=== PATIENT | male | born 1990 | race African-American/Black ===

== ENCOUNTER 2018-08-15 21:28 | Emergency (ER) | payer OTHER ==
[2018-08-15 21:43] VITALS: BP 132/74
--- NOTE | 2018-08-16 00:48 | ER Document Report ---
HPI - HPI Patient complains to provider of: cough Time Seen by Provider: 08/15/18 23:47 Pain Level: 1 Context: Well-appearing 29-year-old male who presents to the emergency department for persistent cough times 1 month. He has taken DayQuil and NyQuil and Mucinex with no resolution. He states he has been drinking about a gallon of water a day. He states the cough is productive and is producing phlegm. He denies fevers, chills, headache, earache, sore throat, nausea, vomiting, diarrhea. He has no other symptoms only the cough. No sick contacts. - CONSTITUTIONAL Constitutional: DENIES: Fever, Chills - EENT EENT: DENIES: Sore Throat, Ear Pain, Eye problems - NEURO Neurology: DENIES: Headache, Weakness, Vision blurred, Dizzinesss / Vertigo - CARDIOVASCULAR Cardiovascular: DENIES: Chest pain - RESPIRATORY Respiratory: REPORTS: Coughing - Persistant/hacking. DENIES: Trouble Breathing - GASTROINTESTINAL Gastrointestinal: DENIES: Abdominal Pain, Black / Bloody Stools - URINARY Urinary: DENIES: Dysuria, Urgency, Frequency - MUSCULOSKELETAL Musculoskeletal: DENIES: Extremity pain Past Medical History - Social History Smoking Status: Unknown if Ever Smoked Family History: None Patient has suicidal ideation: No Patient has homicidal ideation: No Renal/ Medical History: Denies: Hx Peritoneal Dialysis Vertical Provider Document - CONSTITUTIONAL Notes: PHYSICAL EXAMINATION: Reviewed vital signs and charting by RN GENERAL: Alert, interacts well. No acute distress. HEAD: Normocephalic, atraumatic. EYES: Pupils equal, round. Extraocular movements intact. ENT: Oral mucosa moist, tongue midline. Uvula midline no tonsillar hypertrophy or tonsillar exudate, bilateral TMs pearly nick no evidence of erythema or bulging. NECK: Full range of motion. Supple. Trachea midline. LUNGS: Clear to auscultation bilaterally, no wheezes, rales, or rhonchi. No respiratory distress. HEART: Regular rate and rhythm. No murmur ABDOMEN: soft, non-tender. Non-distended. Bowel sounds present in all 4 quadrants. no McBurney's point tenderness, no Perkins sign. NEUROLOGICAL: Alert and oriented x3. Normal speech. PSYCH: Normal affect, normal mood. SKIN: Warm, dry, normal turgor. No rashes or lesions noted. - INFECTION CONTROL TRAVEL OUTSIDE OF THE [place] IN LAST 30 DAYS: No Course - Re-evaluation Re-evalutation: 08/16/18 02:11 Ill-appearing 28-year-old male presents with persistent cough for 1 month that is not resolved with [id number] treatments. He denies fevers or any other infectious symptoms. He only complains of the isolated symptom of cough. Physical exam was completely normal there were no adventitious sounds heard on lung exam. I explained to patient that he may have had bronchitis and he has a lingering cough that could last up to 4-6 weeks. I do not feel that he has a pneumonia and a chest x-ray is necessary. He is not toxic appearing at all I gave him instructions for symptomatic treatment and return precautions. - Vital Signs Vital signs: Temp Pulse Resp BP Pulse Ox 98.2 F 72 16 132/74 H 98 08/15/18 21:41 08/15/18 21:41 08/15/18 21:41 08/15/18 21:41 08/15/18 21:41 Discharge - Discharge Clinical Impression: Cough Condition: Good Disposition: HOME, SELF-CARE Additional Instructions: You are seen in the emergency department this evening for a persistent cough. Unfortunately, coughs can last up to 4-6 weeks. Because her lungs sounded clear I have no concerns that you have a pneumonia and need for antibiotics or an x- ray. Her physical exam was completely normal which is all reassuring. Please continue to keep doing what you are doing, keep your fluids up, you can use [id number] medicines to help with symptoms, and you can take a couple tablespoons of honey a day to soothe your throat. If you start developing fever, shortness of breath, worsening symptoms, or you become acutely ill please immediately return the emergency department.
== END 2018-08-16 01:12 | disposition home or self-care (01) ==
LOC: ER 21:28
DX: R05 Cough (principal)
CPT/HCPCS: 99283

== ENCOUNTER 2020-05-14 08:15 | Emergency (ER) | payer OTHER ==
[2020-05-14 10:20] LABS: A TYPE INFLUENZA AG NEGATIVE (NEGATIVE); B INFLUENZA AG NEGATIVE (NEGATIVE)
[2020-05-14] MEDS ORDERED: DEXAMETHASONE SOD PHOS INJ 10 MG/1 ML VIAL IM ONE (10:23)
--- NOTE | 2020-05-14 11:02 | ER Document Report ---
ED General - General Chief Complaint: sore thoat Stated Complaint: SORE THROAT Time Seen by Provider: 05/14/20 09:44 Mode of Arrival: Ambulatory Information source: Patient Notes: 29-year-old male patient presents emergency department chief complaint of sore throat. Patient reports symptoms ongoing for the last 2 days. He reports that he has had Covid a few months ago. He is concerned he is Covid again as he has had a positive exposure recently. Patient denies any fever, chills, nausea, vomiting, diarrhea, cough, loss of taste or loss of smell. TRAVEL OUTSIDE OF THE [place] IN LAST 30 DAYS: No Past Medical History - General Information source: Patient - Social History Smoking Status: Never Smoker Frequency of alcohol use: Occasional Family History: None - Medical History Medical History: Negative Renal/ Medical History: Denies: Hx Peritoneal Dialysis Past Surgical History: Reports: Hx Orthopedic Surgery - bilateral feet Review of Systems - Review of Systems EENT: Throat pain -: Yes All other systems reviewed and negative Physical Exam - Vital signs Vitals: Temp Pulse BP Pulse Ox 98.3 F 88 136/74 H 100 05/14/20 08:28 05/14/20 08:28 05/14/20 08:28 05/14/20 08:28 - Notes Notes: PHYSICAL EXAMINATION: GENERAL: Well-appearing, well-nourished and in no acute distress. HEAD: Atraumatic, normocephalic. EYES: Pupils equal round extraocular movements intact, conjunctiva are normal. ENT: Nares patent, oropharynx clear, no erythema, no exudates. No tonsillar swelling, uvula midline. NECK: Normal range of motion, no cervical lymphadenopathy. LUNGS: No respiratory distress, lung sounds clear and equal bilaterally. Musculoskeletal: Normal range of motion NEUROLOGICAL: Normal speech, normal gait. PSYCH: Normal mood, normal affect. SKIN: Warm, Dry, normal turgor, no rashes or lesions noted. Course - Re-evaluation Re-evalutation: Patient appears well, nontoxic. Rapid strep and influenza are both negative. Patient requesting Covid test as he has had a close contact test positive. He has personally had Covid himself back in January. Patient understands ED return precautions. - Vital Signs Vital signs: Temp Pulse Resp BP Pulse Ox 98.3 F 88 136/74 H 100 05/14/20 08:28 05/14/20 08:28 05/14/20 08:28 05/14/20 08:28 Discharge - Discharge Clinical Impression: Sore throat, Viral illness Condition: Stable Disposition: HOME, SELF-CARE Instructions: COVID-19 Guidance for Persons Under Investigation Additional Instructions: If you were prescribed medications during today's visit please take them exactly as prescribed. COVID-19 test pending. Self quarantine until results have returned or if you have been asymptomatic for at least 3 days. Health department will provide you with further guidance regarding this. Push fluids. Get plenty of rest. Tylenol or Motrin for fever and body aches. Good handwashing and stay away from others. Return to the emergency department with any new or worsening symptoms such as difficulty breathing, or any other worsening symptoms. Forms: Return to Work
[2020-05-14 11:50] VITALS: BP 118/82
== END 2020-05-14 11:30 | disposition home or self-care (01) ==
LOC: ER 08:15
DX: J02.9 Acute pharyngitis, unspecified (principal); B34.9 Viral infection, unspecified; Z86.19 Personal history of other infectious and parasitic diseases; Z20.828 Contact with and (suspected) exposure to other viral communicable diseases
CPT/HCPCS: 99284; 96372; 87070; 87880; 87635; 87804; J1100; C9803